=== PATIENT | male | born 1980 ===

== ENCOUNTER 2021-11-08 06:17 | Observation (INO) ==
[~2021-11-08 06:17] MED LIST: VANCOMYCIN INJ 1,000 MG in SODIUM CHLORIDE 0.9% 250 ML IV ONE
[2021-11-08] MEDS ORDERED: GABAPENTIN 400 MG CAPSULE PO ONE (06:48)
[2021-11-08] MEDS ORDERED: FAMOTIDINE 20 MG TABLET PO ONE (06:48)
[2021-11-08] MEDS ORDERED: ACETAMINOPHEN 500 MG TABLET PO ONE (06:48)
[2021-11-08] MEDS ORDERED: DIAZEPAM 5 MG TABLET PO ONE (06:48)
[2021-11-08] MEDS ORDERED: LACTATED RINGERS 1,000 ML IV SCH (07:00)
[2021-11-08] MEDS ORDERED: DEXAMETHASONE 4 MG/1 ML VIAL ONE (09:22)
[2021-11-08] MEDS ORDERED: ROPIVACAINE 0.5% 30 ML VIAL ONE (09:22)
[2021-11-08] MEDS ORDERED: SEVOFLURANE 1 UNIT/15 MINUTE INH ONE ×2 (09:34→11:56)
[2021-11-08] MEDS ORDERED: ONDANSETRON 4 MG/2 ML VIAL ONE (09:34)
[2021-11-08] MEDS ORDERED: MIDAZOLAM 2 MG/2 ML VIAL ONE ×3 (09:34→11:26)
[2021-11-08] MEDS ORDERED: propofoL 200 MG/20 ML VIAL IV ONE ×3 (09:34→12:10)
[2021-11-08] MEDS ORDERED: LIDOCAINE 2% 5 ML VIAL ONE (09:34)
[2021-11-08] MEDS ORDERED: fentaNYL 100 MCG/2 ML VIAL ONE (09:34)
[2021-11-08] MEDS ORDERED: ROCURONIUM 50 MG/5 ML VIAL IV ONE (09:36)
[2021-11-08] MEDS ORDERED: buprenorphine HCL 0.3 MG/ML VIAL ONE (09:58)
[2021-11-08] MEDS ORDERED: diphenhydrAMINE CAP 25 MG CAPSULE PO PRN (10:26)
[2021-11-08] MEDS ORDERED: ONDANSETRON 4 MG/2 ML VIAL IV PRN (10:26)
[2021-11-08] MEDS ORDERED: MORPHINE 2 MG/1 ML SYRINGE IV PRN (10:26)
[2021-11-08] MEDS ORDERED: MAGNESIUM HYDROXIDE SUSP 30 ML UDCUP PO PRN (10:26)
[2021-11-08] MEDS ORDERED: ZALEPLON 5 MG CAPSULE PO PRN (10:26)
[2021-11-08] MEDS ORDERED: ePHEDrine 50 MG/ML VIAL ONE (10:55)
[2021-11-08] MEDS ORDERED: SODIUM CHLORIDE 0.9% 250 ML IV ONE (12:10)
[2021-11-08] MEDS ORDERED: TRANEXAMIC ACID 1,000 MG/10 ML VIAL ONE (12:10)
[2021-11-08] MEDS ORDERED: LACTATED RINGERS 1,000 ML IV ONE (12:11)
[2021-11-08 12:12] LABS: Bilirubin,Urine Negative (Negative); Blood, Urine Negative (Negative); Glucose,Urine (UA) Negative (Negative); Ketones,Urine Negative (Negative); Nitrite,Urine Negative (Negative); Protein,Urine Negative (Negative); Urine Appearance Clear (Clear); Urine Color Yellow (Yellow); Urine Urobilinogen 0.2 eU/dL (<2.0); Urine pH 5.5 (4.5-8.0)
[2021-11-08 12:15] LABS: Mucus,Urine Occasional /LPF (Occasional)
[2021-11-08] MEDS: KETOROLAC 30 MG/1 ML VIAL IV SCH ×3 (15:14→22:13)
[2021-11-08] MEDS: LACTATED RINGERS 1,000 ML IV SCH (15:38)
[2021-11-08] MEDS: hydrALAZINE 25 MG TABLET PO SCH ×2 (15:38→20:43)
[2021-11-08] MEDS: ceFAZolin 2,000 MG/50 ML DUPLEX IV SCH ×2 (15:38→21:40)
[2021-11-08] MEDS: MORPHINE 2 MG/1 ML SYRINGE IV PRN (18:32)
[2021-11-08] MEDS: DOCUSATE SODIUM 100 MG CAPSULE PO SCH (20:43)
[2021-11-09] MEDS: LACTATED RINGERS 1,000 ML IV SCH (04:00)
[2021-11-09] MEDS: KETOROLAC 30 MG/1 ML VIAL IV SCH (04:14)
[2021-11-09] MEDS ORDERED: FONDAPARINUX 2.5 MG/0.5 ML SYRINGE SUBCUT SCH (05:00)
[2021-11-09 05:08] LABS: Basophils % 0.4 % (0.0-0.8); Eosinophils % 0.3 % (0.00-10.9); Hematocrit 31.4 VOL% (42.0-52.0); Hemoglobin 10.3 GM/DL (14.0-18.0); Immature Granulocytes % 0.6 %; Immature Granulocytes Absolute 0.07 #; Lymphocytes # 2.2 10*3/uL (1.4-4.0); Lymphocytes % 19.8 % (21.2-54.2); Mean Corpuscular HGB Conc 32.8 GM/DL (32-36); Mean Corpuscular Volume 98.1 FL (87-102); Mean Platelet Volume 9.3 FL (9.6-12.0); Monocytes # 1.3 10*3/uL (0.11-0.8); Monocytes % 11.8 % (1.7-12.7); Neutrophils % 67.1 % (38.7-73.9); Platelet Count 263 T/CUMM (130-400); Red Cell Distribution Width 13.6 % (9.3-17.3); White Blood Count 11.1 T/CUMM (4-12)
[2021-11-09 05:33] LABS: Calcium 8.4 MG/DL (8.5-10.1); Osmolality,Calculated 279.5 MOS/KG (273-304)
[2021-11-09 07:15] VITALS: BP 133/75
[2021-11-09] MEDS: DOCUSATE SODIUM 100 MG CAPSULE PO SCH (08:07)
[2021-11-09] MEDS: hydrALAZINE 25 MG TABLET PO SCH (08:07)
[2021-11-09] MEDS ORDERED: hydroCHLOROthiazide 25 MG TABLET PO SCH (09:00)
[2021-11-09] MEDS ORDERED: amLODIPine 10 MG TABLET PO SCH (09:00)
[2021-11-09] MEDS ORDERED: buPROPion SR 150 MG TABLET PO SCH (09:00)
[2021-11-09] MEDS: MORPHINE 2 MG/1 ML SYRINGE IV PRN (10:17)
== END 2021-11-09 11:45 | disposition home health service (06) ==
LOC: INTOOBSV 06:17 → N.SDSINP 06:17 → N.3E 14:47
PROVIDERS: ADMIT Orthopaedic Surgery; ATTEND Orthopaedic Surgery